=== PATIENT | female | born 1995 | race African-American/Black ===

== ENCOUNTER 2018-02-20 14:44 | Emergency (ER) | payer MEDICAID ==
[~2018-02-20] VITALS: Ht 167.6 cm; Wt 110.0 kg
[2018-02-20 14:53] VITALS: BP 120/56
== END 2018-02-20 23:24 | disposition left against medical advice (07) ==
LOC: ER 14:44
DX: Z53.21 Procedure and treatment not carried out due to patient leaving prior to being seen by health care provider (principal)